=== PATIENT | male | born 1945 | race Caucasian/White ===

== ENCOUNTER 2016-11-20 13:26 | Emergency (ER) | payer MEDICARE, OTHER ==
[~2016-11-20] VITALS: Ht 175.3 cm; Wt 64.5 kg
[~2016-11-20 13:26] MED LIST: CETI10CA PO; FERR-74 PO; FINA5TAB2 PO; GABA600T2 PO; GLUC-125 PO; GREE250C PO; HYDR-3479 PO; MULT-621 PO; OMEG1CAP32 PO; OMEP-113 PO; SAW1CAPS PO; TRAM150C25 PO; VITA-212 PO; ZINC100T2 PO
[2016-11-20 13:28] VITALS: BP 123/78; PULSE 105; RESP 16; O2SAT 95
--- NOTE | 2016-11-20 14:25 | DRSVH ---
PROCEDURE: X-RAY CHEST, TWO VIEWS ([id number]) INDICATIONS: chest pain TECHNIQUE: 2 views of the chest were acquired. COMPARISON: [facility], [place], BARIUM SWALLOW/ESOPHAG, 12/17/2012, 10:22. [facility] CATALINA rojas, CHEST 2VW, 03/25/2012, 11:04. FINDINGS: Surgical changes and devices: None. Lungs and pleura: There is blunting of the right lateral costophrenic angle consistent with pleural thickening or a small effusion. There is hyperinflation of the lungs suggestive of COPD. There are radiodense foci in the lung bases suggestive of dystrophic calcification or sequelae of aspirated con trast. Mediastinum: Mediastinal contours are prominent which may be due to rotation. Heart size is normal. Bones and chest wall: No suspicious bony abnormalities. Soft tissues appear unremarkable. IMPRESSION: 1. Blunting of the right costophrenic angle consistent with a small pleural effusion or pleural thic kening. 2. Bilateral radiodensities in the lung bases consistent with dystrophic calcification or sequelae o f aspirated contrast. Dictated by: Kaiden Aguiar M.D. on 11/20/2016 at 14:20 Approved by: Kaiden Aguiar M.D. on 11/20/2016 at 14:23
[2016-11-20 14:34] LABS: BASOPHILS % (AUTO) 0.1 % (0-3); EOSINOPHILS % (AUTO) 0.5 % (0-5); MONOCYTES % (AUTO) 5.3 % (4-12); Mean Corpuscular Hemoglobin 30.9 pg (27.0-35.0); Mean Corpuscular Volume 95.5 fL (81-100); NEUTROPHILS % (AUTO) 86.4 % (40-74); Platelet Count 364 bil/L (150-400)
[2016-11-20 14:56] LABS: TROPONIN T 0.013 ug/L (0.0-0.011)
[2016-11-20 15:07] LABS: Magnesium 2.3 mg/dL (1.6-2.6)
--- NOTE | 2016-11-20 15:10 | ED.REPORT ---
HPI-Chest Pain 40 and Over Date of Service November 20, 2016 ED Provider: Thuan Villela MD Patient is a 71 year old male with a history of hypertension and pericarditis who presents to the ED complaining of intermittent chest pain onset a month ago. Associated symptoms include pain that radiate into his left shoulder and back, shortness of breath, dyspnea on deep inhalation and a subjective fever. He denies cough, dyspnea with exertion or black/tarry stool. The patient reports that the pain went away for a week but that started again 4 days ago and has gotten progressively worse since this morning. He describes the pain as a dull pressure. The patient had inflammatory studies done 1 week ago. Patient reports that he is currently taking Prednisone and took 3 Ibuprofen around 1500 that helped with relieve some of his symptoms. Nursing Notes Stated Complaint: CHEST PAIN Chief Complaint: Chest Pain Nursing Notes Reviewed: Yes Allergies: Coded Allergies: diphenhydramine (Verified Allergy, Severe, Rash,Itching,SOB, 11/20/16) Scheduled Cetirizine HCl (Zyrtec) 10 Mg Capsule 10 MG PO HS Colchicine (Colchicine) 0.6 Mg Capsule 0.6 MG PO DAILY Ferrous Sulfate (Feosol) 325 Mg Tablet 325 MG PO DAILY Finasteride (Proscar) 5 Mg Tablet 5 MG PO DAILY Gabapentin (Gabapentin) 600 Mg Tablet 600 MG PO HS Gluc/Bro-Msm#3/Myron/Bosw/Bor (Glucosamine Chondroitin Sftgl) 1 Each Capsule 1 EACH PO DAILY Green Tea [place] Extract (Green Tea Extract) 250 Mg Capsule 250 MG PO DAILY Multivitamin with Minerals (Multiple Vitamin) 1 Each Tablet 1 EACH PO DAILY [place]-3 Fatty Acids/Fish Oil (Fish Oil Softgel) 1 Each Capsule.dr 1 EACH PO DAILY Omeprazole Magnesium (Omeprazole) 20 Mg Capsule.dr 20 MG PO DAILY Tramadol ER (Tramadol ER) 150 Mg Cpmp.25.75 150 MG PO DAILY Vitamin B Complex (T-Pwbckmz-Bkyvhqv B-12) 1 Each Tablet 1 EACH PO DAILY Scheduled PRN Hydrocodone/Acetaminophen (Vicodin 5-300 mg Tablet) 1 Each Tablet 1 EACH PO Q4 PRN PRN For Pain Miscellaneous Medications Saw [place] Xt/Phytosterol #2 (Prostate Sr Softgel) 1 Each Capsule 1 EACH PO Zinc Gluconate (Zinc Gluconate) 100 Mg Tablet 100 MG PO General Time Seen by MD: 15:07 Chief Complaint Chest pain Hx Obtained From: Patient Arrived By: Walk-in Sudden in Onset?: Yes Onset Occurred: More than a week ago... (1 month) Symptom Duration: Intermittent Location: : Chest left: Chest right Quality: Dull, Pressure Radiation: : Back: Shoulder left Associated with: Reports: Shortness of Breath Recent Healthcare: No recent hospitalization, Recent doctor visit Similar Sx Previous: Yes Past Medical History Past Medical History pericarditis arthritis Reports: Hypertension Past Surgical History back surgery right knee replacement perforated stomach hiatal hernia repair Smoking History Light Tobacco Smoker Social History Alcohol Use: "Social" Other Social History: Good social support, Ambulatory Status Independent Review of Systems Constitutional: Reports: Fever Respiratory: Reports: Shortness of breath, Denies: Non-productive cough Cardiovascular: Reports: Chest pain, Denies: Dyspnea on exertion GI: Reports: Abdominal pain, Denies: Bloody/tarry stool Musculoskeletal: Reports: Back pain, Extremity pain (left shoulder) Complete sys rev & neg: except as marked. Physical Exam Initial Vital Signs Vital Signs (First) Date Time Temp Pulse Resp B/P Pulse Ox O2 Delivery O2 Flow Rate FiO2 11/20/16 13:28 36.7 105 16 123/78 95 Room Air Initial VS: Reviewed General/Constitutional: Awake, Alert, No acute distress Respiratory / Chest: Atraumatic, Breath sounds NL, Breath sounds = bilat, No respiratory distress Cardiovascular: Heart rate NL, Regular rhythm, Heart sounds NL, No murmurs mild pericardial friction rub Abdomen: Atraumatic, Soft, Non-tender Lower Extremity / Pelvis / MS: Atraumatic, Full range of motion, No edema Skin: Atraumatic, Color NL, No rash, Warm, Dry Neurologic: Oriented X3, Speech NL, No motor deficits, No sensory deficits Psychiatric: Affect NL, Mood NL Head / Eyes: Atraumatic, Normocephalic, PERRL, EOMI Interpretation & Diagnostics Lab Results Interpretation Result Diagram: 11/20/16 1420 11/20/16 1420 Test 11/20/16 14:20 11/20/16 18:39 White Blood Count 18.6th/mm3 (3.8-10.1) Red Blood Count 3.59mil/mm3 (4.40-5.80) Hemoglobin 11.1g/dL (13.8-17.2) Hematocrit 34.3% (41.0-50.0) Mean Corpuscular Volume 95.5fL (81-100) Mean Corpuscular Hemoglobin 30.9pg (27.0-35.0) Mean Corpuscular Hemoglobin Concent 32.4% (32.0-37.0) Red Cell Distribution Width 14.7% (12.3-15.4) Platelet Count 364bil/L (150-400) Neutrophils (%) (Auto) 86.4% (40-74) Lymphocytes (%) (Auto) 7.4% (14-46) Monocytes (%) (Auto) 5.3% (4-12) Eosinophils (%) (Auto) 0.5% (0-5) Basophils (%) (Auto) 0.1% (0-3) D-Dimer 1.64mg/L FEU (<0.50) Sodium Level 135mEq/L (134-144) Potassium Level 4.5mEq/L (3.5-5.2) Chloride Level 98mEq/L (97-108) Carbon Dioxide Level 23mmol/L (18-29) Blood Urea Nitrogen 26mg/dL (8-27) Creatinine 1.00mg/dL (0.76-1.27) Estimat Glomerular Filtration Rate 79mL/min (>59) Glucose Level 148mg/dL (60-99) Lactic Acid Level 1.6mmol/L (0.4-2.0) Calcium Level 9.2mg/dL (8.5-10.1) Magnesium Level 2.3mg/dL (1.6-2.6) Total Bilirubin 0.4mg/dL (0.0-1.2) Aspartate Amino Transf (AST/SGOT) 30U/L (0-50) Alanine Aminotransferase (ALT/SGPT) 22U/L (0-44) Alkaline Phosphatase 73U/L (25-160) C-Reactive Protein 28.4mg/dL (0.0-0.5) Total Protein 6.9g/dL (6.4-8.4) Albumin 3.4g/dL (3.4-5.0) Hold [place] Top Tube Received (Received) Troponin T 0.010ug/L (0.0-0.011) ECG Interpretation 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 Blunting of the right costophrenic angle consistent with a small pleural effusion or pleural thickening. 2. Bilateral radiodensities in the lung bases consistent with dystrophic calcification or sequelae of aspirated contrast. Dictated by: Kaiden Aguiar M.D. on 11/20/2016 at 14:20 Approved by: Kaiden Aguiar M.D. on 11/20/2016 at 14:23 View: Portable, 1 view Interpretation / Wet Read by: Interpret - Radiologist CT Chest Interpretation IMPRESSION: 1. No acute pulmonary embolus. 2. Findings suggestive of prior granulomatous disease. No acute airspace opacities. 3. Small pericardial effusion. Dictated by: Jami Foreman M.D. on 11/20/2016 at 17:05 Approved by: Jami Foreman M.D. on 11/20/2016 at 17:10 Study type: CT pulm angiogram Interpretation / Wet Read by: Interpret - Radiologist Re-Eval/Medical Decision Med Decision/Clinical Course 71-year-old male presenting with left-sided chest pain for one month. He had extensive workup in [place] and was diagnosed with pericarditis. He had an echocardiogram and CT scan. He was told to take high-dose nonsteroidal anti-inflammatories. His pain improved after several weeks. It then resumed 4 days ago. It is left-sided and constant. Pleuritic. Vital signs stable. His EKG with diffuse ST elevations. Troponin is initially +0.01. Repeat negative her hours later. His pain is improved with NSAIDs. CT anterior chest shows no PE. Small pericardial effusion. I discussed with physical therapy assistant instructor who thought patient could be discharged home with follow-up with cardiology in one week. Recommended colchicine in addition to NSAIDs and rest. Return precautions given. Patient agreeable with this plan. Source of Hx: Old records Time of Eval: 19:32 Patient Status: Condition improved Re-Evaluation/Progress Note: Discussed lab results and plan for discharge. The patient understands and agrees to the plan for discharge. All questions were addressed. Consultation : Referral / Consult Name: Kenyon Mccollum MD Consulted With: Cardiology Call Returned at: 18:22 Retail Event Assistant: Agrees with eval, Agrees with plan Note: Consult with Dr. Mccollum, physical therapy assistant instructor, who recommends the patient follow up with cardiology next week after resting. Counseled Regarding: Diagnosis, Lab results, Need for follow-up, When/why to return to ED Discharge & Departure Primary Impression: Pericarditis Pericarditis type: unspecified type Chronicity: unspecified Qualified Code : I31.9 - Disease of pericardium, unspecified Additional Impression: Chest pain Chest pain type: unspecified Qualified Code: R07.9 - Chest pain, unspecified Disposition: ADMITTED TO HOSPITAL Discharge Condition All VS Reviewed: Yes Condition: Stable Patient Instructions: Chest Pain (ED) Additional Instructions: Your CT showed no signs of a blood clot but a small amount of fluid around your heart. Take Colchicine as prescribed. Call to schedule an appointment with Dr. Mccollum, cardiology for next week. Return to the emergency department if you develop any new or worsening symptoms including chest pain, weakness or shortness of breath. Referrals: Julienne Sommers MD (PCP) Kenyon Mccollum MD Attestation Portions of this note were transcribed by Asiya Rubin. I, Dr. Villela personally performed the history, physical exam and medical decision-making; I reviewed and confirmed the accuracy of the information in the transcribed note. Signed by: Jamshid Alcala, 11/20/16 and 1900 copies to: Kenyon Mccollum MD; Julienne Sommers MD, Ben M MD November 20, 2016 15:10 Ariana Rubin November 20, 2016 15:23
[2016-11-20 15:33] VITALS: BP 120/58; PULSE 79; RESP 18; O2SAT 92
--- NOTE | 2016-11-20 17:12 | DRSVH ---
PROCEDURE: CT ANGIO CHEST PULMONARY EMBOLISM ([id number]) INDICATIONS: chest pain elevated ddimer TECHNIQUE: After the administration of intravenous contrast, 2 mm thick sections acquired from the pulmonary api major to the posterior costophrenic angles. 3-dimensional maximum intensity projection (MIP) coronal a nd sagittal reformats were then acquired through the thorax. For radiation dose reduction, the follo wing was used: automated exposure control, adjustment of mA and/or kV according to patient size. COMPARISON: None. FINDINGS: Image quality: Excellent. Pulmonary arteries: Pulmonary arteries are normal in size, and demonstrate no intraluminal filling d efects to suggest central pulmonary embolism. Lungs and pleura: There is mild apical scarring and paraseptal emphysema. Calcifications are present in the bilateral lung bases suggesting prior granulomatous disease. Mediastinum: Heart size is normal. There is a small pericardial effusion. No mediastinal or hilar a denopathy. Thoracic aorta is normal in caliber and enhancement. Scattered atheromatous calcification s are present within the aortic arch. Esophagus is normal in caliber, without hiatal hernia. Bones and chest wall: No suspicious bony lesions. Ribs and thoracic spine appear intact throughout. Thyroid gland is unremarkable. No axillary or supraclavicular adenopathy. Abdomen: Visualized upper abdominal solid organs appear normal in the early arterial phase of enhanc ement. IMPRESSION: 1. No acute pulmonary embolus. 2. Findings suggestive of prior granulomatous disease. No acute airspace opacities. 3. Small pericardial effusion. Dictated by: Jami Foreman M.D. on 11/20/2016 at 17:05 Approved by: Jami Foreman M.D. on 11/20/2016 at 17:10
[2016-11-20 17:35] VITALS: BP 110/58; PULSE 75; RESP 16; O2SAT 93
[2016-11-20 19:28] VITALS: BP 114/53; PULSE 74; RESP 18; O2SAT 95
[2016-11-20] MEDS ORDERED: COLC0.6C3 PO (19:29)
[2016-11-20 19:59] VITALS: BP 117/57; PULSE 67; RESP 16; O2SAT 97
== END 2016-11-20 20:00 | disposition home or self-care (01) ==
LOC: SED 13:26
DX: I31.9 Disease of pericardium, unspecified (principal); R07.9 Chest pain, unspecified; I25.2 Old myocardial infarction; I10 Essential (primary) hypertension; F17.200 Nicotine dependence, unspecified, uncomplicated; Z88.8 Allergy status to other drugs, medicaments and biological substances
CPT/HCPCS: 36415; 71020; 71275; 80053; 83605; 83735; 84484; 85025; 85378; 86140; 87040; 93005; 99285; Q9967